=== PATIENT | male | born 1955 | race Caucasian/White ===

== ENCOUNTER 2016-05-19 10:27 | Emergency (ER) | payer BC ==
[2016-05-19 10:17] LABS: BASOPHILS 0.4 %; BASOPHILS ABSOLUTE 0.02 10/3/uL (0.0-0.16); EOSINOPHILS 0.2 %; EOSINOPHILS ABSOLUTE 0.01 10/3/uL (0.0-0.53); ER CBC TAT 0 Hrs 05 Mins; HEMOGLOBIN 14.3 g/dL (13.6-17.8); LYMPHOCYTES 9.7 %; LYMPHOCYTES ABSOLUTE 0.53 10/3/uL (0.67-4.30); MEAN CORPUS HGB CONC 34.2 g/dL (32.0-36.0); MEAN PLATELET VOLUME 11.1 fL (9.2-13.0); MONOCYTES 18.9 %; MONOCYTES ABSOLUTE 1.03 10/3/uL (0.21-1.20); NEUTROPHILS 70.8 %; NEUTROPHILS ABSOLUTE 3.85 10/3/uL (2.02-8.40); RBC DISTRIBUTION WIDTH 13.9 % (12.0-16.0); RED CELL COUNT 4.66 10/6/uL (4.7-6.1); WHITE BLOOD CELLS 5.4 10/3/uL (4.5-10.5)
[2016-05-19 10:22] LABS: HEMATOCRIT 41.8 % (40.0-51.0); MANUAL DIFF NO %; MEAN CORPUSCULAR HEMOGLOB 30.7 pg (26.0-34.0); MEAN CORPUSCULAR VOLUME 89.7 fL (80-100); PLATELET COUNT 118 10/3/uL (150-400)
[2016-05-19 10:24] LABS: INTERNATIONAL NORMAL RATI 1.1 UNITS (-); PARTIAL THROMBO TIME 27.7 SEC (22.5-37.2); PROTIME (NOT ORD) 14.1 SEC (12.0-14.5)
[~2016-05-19 10:27] MED LIST: AMB10 PO; ASAB PO; AXIRON T; C5 PO; CIP5 PO; CIPIV4 IV; COREG CR80 MG PO; COREG12 PO; COREG25 PO; COREG6 PO; COUMADIN10 MG PO; COUMADIN3 MG PO; CREON PO; EZFE 200200 MG PO; FLONASE NAS; HUMALOG SC; HUMAPUMP SC; HYZAAR1 TAB PO; KDUR20 PO; L40 PO; L80 PO; LEVOCETIRIZINE PO; LOVENOX; PACERONE200 MG PO; PRILO PO; PROBIOTIC PO; QVAR40 MC1 INH; SUCR PO; ZANTAC 75 PO
[2016-05-19 10:31] LABS: CALCIUM, SERUM 8.8 MG/DL (8.5-10.4); CHEST PAIN PROFILE TAT 0 Hrs 19 Mins; CHLORIDE, SERUM 94 MMOL/L (96-112); CO2 (CARBON DIOXIDE) 31 MMOL/L (24-34); POTASSIUM, SERUM 4.4 MMOL/L (3.5-5.3); SODIUM, SERUM 135 MMOL/L (135-148); TROPONIN I <0.02 NG/ML (<0.05)
[2016-05-19 10:33] LABS: BUN (BLOOD UREA NITROGEN) 30 MG/DL (6-23); GFR AFRICAN AMERICAN 57 ML/MIN (>=60); GFR NON AFRICAN AMERICAN 49 ML/MIN (>=60); GLUCOSE, SERUM 157 MG/DL (60-99)
[2016-05-19] MEDS ORDERED: TESSALON200 MG PO (12:29)
[2016-05-19] MEDS ORDERED: AMOXIL500 MG PO (12:30)
[2016-05-19] MEDS ORDERED: TAMIFLU PO (12:30)
[2016-05-19] MEDS ORDERED: AMB10 PO (12:31)
[2016-05-19] MEDS ORDERED: QVAR40 MC1 INH (12:31)
[2016-05-19] MEDS ORDERED: HUMAPUMP SC (12:34)
[2016-05-19] MEDS ORDERED: CREON 24000 UNIT PO (12:34)
[2016-05-19] MEDS ORDERED: XYZAL5 MG PO (12:34)
[2016-05-19] MEDS ORDERED: AXIRON T (12:36)
[2016-05-19] MEDS ORDERED: COREG6 PO (12:37)
[2016-05-19] MEDS ORDERED: L40 PO (12:37)
[2016-05-19] MEDS ORDERED: KDUR20 PO (12:38)
[2016-05-19] MEDS ORDERED: ASAB PO (12:39)
[2016-05-19] MEDS ORDERED: VITAMIN D400 UNI1 PO (12:39)
[2016-05-19 14:31] LABS: INFLUENZA A SCREEN NEGATIVE (NEGATIVE); INFLUENZA B SCREEN POSITIVE (NEGATIVE)
== END 2016-05-19 17:28 | disposition home or self-care (01) ==
LOC: ER 10:27
PROVIDERS: Physician Assistant
DX: R00.1 Bradycardia, unspecified (principal); R06.00 Dyspnea, unspecified; J11.1 Influenza due to unidentified influenza virus with other respiratory manifestations; N17.9 Acute kidney failure, unspecified; E10.9 Type 1 diabetes mellitus without complications; Z79.4 Long term (current) use of insulin; Z79.82 Long term (current) use of aspirin; Z79.899 Other long term (current) drug therapy
CPT/HCPCS: 71010; 80048; 83735; 83880; 84484; 85025; 85610; 85730; 87804; 93005; 94640; 99285